=== PATIENT | female | born 1935 | race Caucasian/White ===

== ENCOUNTER 2018-04-10 10:26 | Emergency (ER) | payer OTHER ==
[2018-04-10 11:24] VITALS: PULSE 70; BMI 24.4
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
[2018-04-10 14:58] VITALS: BP 112/80; TEMP 97.7
--- NOTE | 2018-04-18 11:20 | EKG ---
Test Reason : Blood Pressure : / mmHG Vent. Rate : 069 BPM Atrial Rate : 069 BPM P-R Int : 158 ms QRS Dur : 090 ms QT Int : 398 ms P-R-T Axes : 052 -15 041 degrees QTc Int : 426 ms NORMAL SINUS RHYTHM NORMAL ECG WHEN COMPARED WITH ECG OF 17-JAN-2016 10:35, NO SIGNIFICANT CHANGE WAS FOUND Confirmed by JAMES ADAMS MD ([id number]) on 04/18/2018 11:20:02 AM Referred By: Confirmed By:JAMES ADAMS MD
== END 2018-04-10 14:42 | disposition home or self-care (01) ==
LOC: JER 10:26
DX: M54.2 Cervicalgia (principal); R07.89 Other chest pain; M79.605 Pain in left leg; V43.53XA Car driver injured in collision with pick-up truck in traffic accident, initial encounter; Y92.414 Local residential or business street as the place of occurrence of the external cause; Y93.89 Activity, other specified; Y99.8 Other external cause status; E78.00 Pure hypercholesterolemia, unspecified; E03.9 Hypothyroidism, unspecified; I34.1 Nonrheumatic mitral (valve) prolapse; Z87.19 Personal history of other diseases of the digestive system
CPT/HCPCS: 70450-TC; 71250-TC; 72125-TC; 73552-TC-LT-FY; 73552-TC-RT-FY; 73590-TC-LT-FY; 74150-TC; 93005; 93010; 99283-25

== ENCOUNTER 2018-09-23 09:20 | Day surgery (SDC) | payer OTHER ==
[2018-09-22 15:12] VITALS: BMI 23.7
[2018-09-23 11:41] VITALS: TEMP 97.6
[2018-09-23 12:24] VITALS: BP 118/73; PULSE 75
--- NOTE | 2018-09-24 18:25 | PATH ---
Surgical Pathology Report Patient Name: GARY MCDONNELL [facility] Rec. #: [id number] /Age/Gender: 1935 (Age: 83) / F Account: [id number] Location: ASU-ENDOSCOPY Taken: 09/23/2018 Received: 09/23/2018 Reported: 09/24/2018 Physicians: Demarcus Varela D.O. Specimen(s) Received A: BX RIGHT COLON AND CECUM B: BX TRANSVERSE COLON C: BX DESCENDING COLON/SIGMOID D: BX DESCENDING COLON POLYP E: BX RECTUM Clinical History Colitis Postoperative diagnosis: diverticulosis, colon polyp Final Diagnosis A. CECUM AND COLON, RIGHT, BIOPSY: FRAGMENTS OF POLYPOID COLONIC MUCOSA WITH PROMINENT LYMPHOID AGGREGATE. B. TRANSVERSE COLON, BIOPSY: FRAGMENTS OF POLYPOID COLONIC MUCOSA WITHOUT SIGNIFICANT PATHOLOGIC FINDINGS. C. DESCENDING/SIGMOID COLON, BIOPSY: COLONIC MUCOSA WITH FOCAL SUPERFICIAL HYPERPLASTIC FEATURES. FRAGMENTS OF POLYPOID COLONIC MUCOSA WITH PROMINENT LYMPHOID AGGREGATE. D. DESCENDING COLON, POLYP, BIOPSY: HYPERPLASTIC POLYP. E. RECTUM, BIOPSY: POLYPOID COLONIC MUCOSA WITH PROMINENT LYMPHOID AGGREGATE. Electronically Signed Verenice Madison M.D. Gross Description A. Received in formalin labeled "right colon and cecum," is a 0.7 x 0.5 x 0.1 cm aggregate of patino soft tissue fragments. The formalin is filtered and the specimen is entirely submitted in one cassette. B. Received in formalin labeled "biopsy transverse colon," is a 0.7 x 0.6 x 0.1 cm aggregate of patino soft tissue fragments. The formalin is filtered and the specimen is entirely submitted in one cassette. C. Received in formalin labeled "biopsy descending colon/sigmoid," is a 1.0 x 0.9 x 0.1 cm aggregate of patino soft tissue fragments. The formalin is filtered and the specimen is entirely submitted in one cassette. D. Received in formalin, labeled "polyp descending" are 5 patino, irregular portions of soft tissue ranging from 0.2-0.5 cm. in greatest dimension. The specimens are submitted in toto in one cassette. E. Received in formalin, labeled "biopsy rectum" are 3 patino, irregular portions of soft tissue ranging from 0.3-0.4 cm. in greatest dimension. The specimens are submitted in toto in one cassette. DL/09/23/2018 saudi/09/23/2018
== END 2018-09-23 12:40 | disposition home or self-care (01) ==
LOC: JASU-ENDO 09:20
PROVIDERS: ATTEND Internal Medicine Gastroenterology
PROC: 0DBE8ZX Excision of Large Intestine, Via Natural or Artificial Opening Endoscopic, Diagnostic (ICD-10-PCS; 2018-09-23)
PROC: 3E0H8GC Introduction of Other Therapeutic Substance into Lower GI, Via Natural or Artificial Opening Endoscopic (ICD-10-PCS; 2018-09-23)
PROC: 0DBM8ZX Excision of Descending Colon, Via Natural or Artificial Opening Endoscopic, Diagnostic (ICD-10-PCS; principal; 2018-09-23 10:30)
DX: Z12.11 Encounter for screening for malignant neoplasm of colon (principal); K57.30 Diverticulosis of large intestine without perforation or abscess without bleeding; D12.4 Benign neoplasm of descending colon; K63.89 Other specified diseases of intestine; Z87.19 Personal history of other diseases of the digestive system
CPT/HCPCS: 88305-TC

== ENCOUNTER 2023-04-02 04:21 | Day surgery (SDC) | payer OTHER ==
[2023-04-01 09:35] VITALS: BMI 22.8
[2023-04-02 10:35] VITALS: BP 160/87; PULSE 99; RESP 21; TEMP 97.5
== END 2023-04-02 10:47 | disposition home or self-care (01) ==
LOC: JASU-ENDO 04:21
PROVIDERS: ATTEND Internal Medicine Gastroenterology
PROC: 0DBP8ZX Excision of Rectum, Via Natural or Artificial Opening Endoscopic, Diagnostic (ICD-10-PCS; principal; 2023-04-02 09:15)
DX: Z12.11 Encounter for screening for malignant neoplasm of colon (principal); K57.30 Diverticulosis of large intestine without perforation or abscess without bleeding; K62.89 Other specified diseases of anus and rectum; Z87.19 Personal history of other diseases of the digestive system
CPT/HCPCS: 88305-TC

== ENCOUNTER 2023-09-10 04:47 | Day surgery (SDC) | payer OTHER ==
[2023-09-04 10:15] VITALS: BMI 24.8
[2023-09-10 09:11] VITALS: TEMP 98
[2023-09-10 09:46] VITALS: BP 141/83; PULSE 97; RESP 22
== END 2023-09-10 10:09 | disposition home or self-care (01) ==
LOC: JASU-ENDO 04:47
PROVIDERS: ATTEND Internal Medicine Gastroenterology
PROC: 0DBL8ZX Excision of Transverse Colon, Via Natural or Artificial Opening Endoscopic, Diagnostic (ICD-10-PCS; 2023-09-10)
PROC: 0DBN8ZX Excision of Sigmoid Colon, Via Natural or Artificial Opening Endoscopic, Diagnostic (ICD-10-PCS; 2023-09-10)
PROC: 0DBP8ZX Excision of Rectum, Via Natural or Artificial Opening Endoscopic, Diagnostic (ICD-10-PCS; 2023-09-10)
PROC: 0DBF8ZX Excision of Right Large Intestine, Via Natural or Artificial Opening Endoscopic, Diagnostic (ICD-10-PCS; 2023-09-10)
PROC: 0DBM8ZX Excision of Descending Colon, Via Natural or Artificial Opening Endoscopic, Diagnostic (ICD-10-PCS; 2023-09-10)
PROC: 0DBH8ZX Excision of Cecum, Via Natural or Artificial Opening Endoscopic, Diagnostic (ICD-10-PCS; principal; 2023-09-10 08:00)
DX: K51.90 Ulcerative colitis, unspecified, without complications (principal); K64.8 Other hemorrhoids
CPT/HCPCS: 88305-TC